=== PATIENT | female | born 1940 | race Caucasian/White ===

== ENCOUNTER 2017-11-04 22:21 | Inpatient (IN) | payer MEDICARE ==
[~2017-11-04] VITALS: Ht 165.1 cm; Wt 65.8 kg
[2017-11-04] MEDS ORDERED: SIMV40TA5 PO (23:08)
[2017-11-04] MEDS ORDERED: TRIA15CR2 TP (23:08)
[2017-11-04] MEDS ORDERED: POTA20TA10 PO (23:08)
[2017-11-04] MEDS ORDERED: FURO40TA5 PO (23:08)
[2017-11-04] MEDS ORDERED: IV NS 1000 ML 1,000 ML IV ONE (23:30)
[2017-11-04 23:53] LABS: *BILIRUBIN,URIN NEGATIVE (NEGATIVE); *BLOOD, URINE 2+ (NEGATIVE); *CLARITY,URINE SLIGHTLY CLOUDY (CLEAR); *COLOR,URINE YELLOW (YELLOW); *KETONES,URINE NEGATIVE (NEGATIVE); *PROTEIN,URINE NEGATIVE (NEGATIVE); *UROBILINOGEN,URINE 0.2 E.U./dl (NORMAL); LEUKOCYTE ESTERASE ,URINE 3+ (NEGATIVE); NITRITE, URINE NEGATIVE (NEGATIVE); PH,URINE 5.5 (5.0-8.0); UGLUCOSE NEGATIVE (NEGATIVE)
[2017-11-04 23:54] LABS: BASOPHILS # (AUTO) 0.1 K/uL (0.0-8.0); BASOPHILS % (AUTO) 1.4 % (0.0-2.0); EOSINOPHILS # (AUTO) 0.5 K/uL (0.0-0.7); EOSINOPHILS % (AUTO) 4.8 % (0.0-7.0); HEMATOCRIT 42.8 % (31.2-41.9); HEMOGLOBIN 14.3 g/dL (10.9-14.3); LYMPHOCYTES % (AUTO) 28.3 % (20.5-51.5); MEAN CORPUSCULAR HEMOGLOBIN 29.5 uug (24.7-32.8); MEAN CORPUSCULAR HGB CONC 33 g/dL (32.3-35.6); MEAN CORPUSCULAR VOLUME 88.6 fL (75.5-95.3); MONOCYTES % (AUTO) 9.2 % (0.0-11.0); NEUTROPHILS # (AUTO) 5.9 K/uL (1.8-8.9); NEUTROPHILS % (AUTO) 56.3 % (38.5-71.5); PLATELET COUNT (AUTO) 197 K/uL (179-408); RED BLOOD CELL COUNT(AUTO) 4.83 MIL/uL (3.63-4.92); WHITE BLOOD COUNT (AUTO) 10.6 K/uL (3.8-11.8)
[2017-11-05 00:02] LABS: CARBON DIOXIDE 26 mmol/L (21-32); CHLORIDE 103 mmol/L (98-107); CREATININE 0.9 mg/dL (0.6-1.3); GLUCOSE 106 mg/dL (74-106); POTASSIUM 3.9 mmol/L (3.5-5.1); UREA NITROGEN, BLOOD 13 mg/dL (7-18)
[2017-11-05 00:13] LABS: ALANINE AMINOTRANSFERASE 19 U/L (14-59); ALKALINE PHOSPHATASE 95 U/L (50-136); ASPARTATE AMINOTRANSFERASE 22 U/L (15-37); BILIRUBIN,DIRECT 0.1 mg/dL (0.0-0.2); BILIRUBIN,TOTAL 0.3 mg/dL (0.2-1.0); TOTAL PROTEIN, SERUM 7.1 g/dL (6.4-8.2)
[2017-11-05 00:31] LABS: BACTERIA,URINE MANY /HPF (NONE SEEN); RBC,URINE 20-50 /HPF (0-3); WBC,URINE 80-100 /HPF (0-3)
[2017-11-05 00:32] LABS: SQUAMOUS EPITHELIAL CELL,UR MODERATE /HPF (NONE SEEN)
[2017-11-05 00:34] LABS: THYROID STIMULATING HORMONE 5.601 mIU/mL (0.358-3.740)
[2017-11-05] MEDS ORDERED: CEFTRIAXONE 1 G in IV DEXTROSE 5% 50 ML IV ONE (00:45)
[2017-11-05] MEDS ORDERED: CEFTRIAXONE 1 G VIAL ONE (00:54)
[2017-11-05] MEDS ORDERED: TEMAZEPAM 15 MG CAPSULE PO PRN ×2 (01:00→09:30)
[2017-11-05] MEDS ORDERED: MAGNESIUM HYDROXIDE 30 ML LIQUID UDC PO PRN (01:00)
[2017-11-05] MEDS ORDERED: ONDANSETRON 4 MG/2 ML VIAL IV PRN (01:00)
[2017-11-05] MEDS ORDERED: LORAZEPAM 2 MG/1 ML VIAL ONE (02:52)
[2017-11-05] MEDS: LORAZEPAM 2 MG/1 ML VIAL IV PRN ×2 (04:27→05:38)
[2017-11-05] MEDS: PANTOPRAZOLE SODIUM 40 MG TABLET.DR PO SCH (06:17)
[2017-11-05 06:44] LABS: BASOPHILS # (AUTO) 0.1 K/uL (0.0-8.0); EOSINOPHILS # (AUTO) 0.3 K/uL (0.0-0.7); EOSINOPHILS % (AUTO) 2.9 % (0.0-7.0); HEMATOCRIT 40.1 % (31.2-41.9); HEMOGLOBIN 13.6 g/dL (10.9-14.3); LYMPHOCYTES # (AUTO) 1.6 K/uL (20.0-40.0); LYMPHOCYTES % (AUTO) 16.2 % (20.5-51.5); MEAN CORPUSCULAR HEMOGLOBIN 29.9 uug (24.7-32.8); MEAN CORPUSCULAR HGB CONC 34 g/dL (32.3-35.6); MEAN CORPUSCULAR VOLUME 88.3 fL (75.5-95.3); MONOCYTES # (AUTO) 0.8 K/uL (2.0-10.0); MONOCYTES % (AUTO) 8.3 % (0.0-11.0); NEUTROPHILS # (AUTO) 7.2 K/uL (1.8-8.9); NEUTROPHILS % (AUTO) 71.6 % (38.5-71.5); PLATELET COUNT (AUTO) 182 K/uL (179-408); RED BLOOD CELL COUNT(AUTO) 4.55 MIL/uL (3.63-4.92); WHITE BLOOD COUNT (AUTO) 10.1 K/uL (3.8-11.8)
[2017-11-05 07:32] LABS: ALANINE AMINOTRANSFERASE 15 U/L (14-59); ALKALINE PHOSPHATASE 85 U/L (50-136); ASPARTATE AMINOTRANSFERASE 22 U/L (15-37); BILIRUBIN,TOTAL 0.3 mg/dL (0.2-1.0); CARBON DIOXIDE 24 mmol/L (21-32); CHLORIDE 105 mmol/L (98-107); CHOLESTEROL 166 mg/dL (<200); CREATININE 0.9 mg/dL (0.6-1.3); GLUCOSE 101 mg/dL (74-106); HDL CHOLESTEROL 42 mg/dL (40-60); MAGNESIUM 1.8 mg/dL (1.8-2.4); PHOSPHOROUS 2.9 mg/dL (2.5-4.9); POTASSIUM 3.5 mmol/L (3.5-5.1); TOTAL PROTEIN, SERUM 6.7 g/dL (6.4-8.2); TRIGLYCERIDES 93 MG/DL (30-150); UREA NITROGEN, BLOOD 12 mg/dL (7-18)
[2017-11-05] MEDS: FUROSEMIDE 40 MG TABLET PO SCH (09:09)
[2017-11-05] MEDS: POTASSIUM CHLORIDE 20 MEQ TAB.PRT.SR PO SCH (09:09)
[2017-11-05] MEDS: MULTIVITAMINS,THERAPEUTIC TABLET PO SCH (09:09)
[2017-11-05] MEDS: ACIDOPHILUS/BULGARICUS CHEW TAB PO SCH ×2 (09:09→20:31)
[2017-11-05] MEDS: ACETAMINOPHEN 325 MG TABLET PO PRN (09:09)
[2017-11-05 11:05] VITALS: BP 106/78
[2017-11-05] MEDS: MORPHINE SULFATE 2 MG/1 ML DISP.SYRIN IV PRN ×2 (12:54→21:17)
[2017-11-05 17:20] VITALS: BP 133/56
[2017-11-05 19:00] VITALS: BP 103/46
[2017-11-05] MEDS: DOCUSATE SODIUM 100 MG CAPSULE PO SCH (20:31)
[2017-11-05] MEDS: SIMVASTATIN 40 MG TABLET PO SCH (20:31)
[2017-11-05] MEDS ORDERED: DOCUSATE SODIUM 250 MG CAPSULE PO SCH (21:00)
[2017-11-05] MEDS: CEFTRIAXONE 1 G in IV DEXTROSE 5% 50 ML IV SCH (23:01)
[2017-11-06 04:00] VITALS: BP 131/71
[2017-11-06] MEDS: PANTOPRAZOLE SODIUM 40 MG TABLET.DR PO SCH (06:02)
[2017-11-06 08:06] LABS: TRIIODOTHYRONINE, FREE 2.5 pg/mL (2.0-4.4)
[2017-11-06] MEDS: ACIDOPHILUS/BULGARICUS CHEW TAB PO SCH ×2 (08:37→20:06)
[2017-11-06] MEDS: MULTIVITAMINS,THERAPEUTIC TABLET PO SCH (08:37)
[2017-11-06] MEDS: POTASSIUM CHLORIDE 20 MEQ TAB.PRT.SR PO SCH (08:38)
[2017-11-06] MEDS: ACETAMINOPHEN 325 MG TABLET PO PRN (08:38)
[2017-11-06] MEDS: FUROSEMIDE 40 MG TABLET PO SCH (08:38)
[2017-11-06 11:00] VITALS: BP 100/45
[2017-11-06 15:20] VITALS: BP 109/48
[2017-11-06 19:00] VITALS: BP 137/56
[2017-11-06] MEDS: SIMVASTATIN 40 MG TABLET PO SCH (20:06)
[2017-11-06] MEDS: TEMAZEPAM 7.5 MG CAPSULE PO PRN (20:06)
[2017-11-06] MEDS: DOCUSATE SODIUM 100 MG CAPSULE PO SCH (20:06)
[2017-11-06] MEDS: CEFTRIAXONE 1 G in IV DEXTROSE 5% 50 ML IV SCH (23:13)
[2017-11-07] MEDS: MORPHINE SULFATE 4 MG/1 ML DISP.SYRIN IV PRN ×2 (01:26→21:47)
[2017-11-07 04:00] VITALS: BP 102/53
[2017-11-07] MEDS: PANTOPRAZOLE SODIUM 40 MG TABLET.DR PO SCH (06:00)
[2017-11-07] MEDS: POTASSIUM CHLORIDE 20 MEQ TAB.PRT.SR PO SCH (08:18)
[2017-11-07] MEDS: ACIDOPHILUS/BULGARICUS CHEW TAB PO SCH ×2 (08:18→20:44)
[2017-11-07] MEDS: MULTIVITAMINS,THERAPEUTIC TABLET PO SCH (08:18)
[2017-11-07] MEDS: FUROSEMIDE 40 MG TABLET PO SCH (08:18)
[2017-11-07 11:10] VITALS: BP 143/78
[2017-11-07 15:06] VITALS: BP 112/48
[2017-11-07 19:00] VITALS: BP 142/76
[2017-11-07] MEDS: DOCUSATE SODIUM 100 MG CAPSULE PO SCH (20:45)
[2017-11-07] MEDS: SIMVASTATIN 40 MG TABLET PO SCH (20:45)
[2017-11-07] MEDS: TEMAZEPAM 7.5 MG CAPSULE PO PRN (20:48)
[2017-11-07] MEDS: CEFTRIAXONE 1 G in IV DEXTROSE 5% 50 ML IV SCH (23:37)
[2017-11-08 04:00] VITALS: BP 123/57
[2017-11-08] MEDS: PANTOPRAZOLE SODIUM 40 MG TABLET.DR PO SCH (06:15)
[2017-11-08] MEDS: MULTIVITAMINS,THERAPEUTIC TABLET PO SCH (08:13)
[2017-11-08] MEDS: ACIDOPHILUS/BULGARICUS CHEW TAB PO SCH (08:13)
[2017-11-08] MEDS: POTASSIUM CHLORIDE 20 MEQ TAB.PRT.SR PO SCH (08:13)
[2017-11-08] MEDS: FUROSEMIDE 40 MG TABLET PO SCH (08:14)
[2017-11-08 11:24] VITALS: BP 108/54
[2017-11-08] MEDS ORDERED: CEPH-570 PO (11:49)
[2017-11-08 15:34] VITALS: BP 115/63
== END 2017-11-08 18:40 | DRG 689 ==
LOC: ER 22:25 → TELE 11-05 02:48 → MED 11-05 11:44
PROVIDERS: ADMIT Internal Medicine
DX: N39.0 Urinary tract infection, site not specified (principal); G93.41 Metabolic encephalopathy; E44.0 Moderate protein-calorie malnutrition; E88.09 Other disorders of plasma-protein metabolism, not elsewhere classified; B96.89 Other specified bacterial agents as the cause of diseases classified elsewhere; F03.90 Unspecified dementia, unspecified severity, without behavioral disturbance, psychotic disturbance, mood disturbance, and anxiety; E02 Subclinical iodine-deficiency hypothyroidism; E78.5 Hyperlipidemia, unspecified; F41.9 Anxiety disorder, unspecified; E66.9 Obesity, unspecified; Z68.24 Body mass index [BMI] 24.0-24.9, adult
CPT/HCPCS: 36415; 70030-TC; 70450; 71045; 82306; 83735; 84100; 84443; 84480; 84481; 85025; 85730; 87086; 93005; 97112; 97116; 97530; A4663; J0696; J2060; J2270; J7030; J7060